=== PATIENT | male | born 1945 | race Caucasian/White ===

== ENCOUNTER 2017-11-16 19:27 | Emergency (ER) | payer SELFPAY ==
[~2017-11-16] VITALS: Ht 165.1 cm; Wt 77.6 kg
[2017-11-16 19:46] VITALS: Ht 165.1 cm; Wt 77.6 kg
[2017-11-16 21:16] LABS: BASOPHIL % 0.3 % (0-2); PLATELET COUNT 232 x10^3mcL (130-400); RED CELL DISTRIBUTION WIDTH 13.6 % (11.5-14.5)
[2017-11-16 21:28] LABS: CALCIUM 8.4 mg/dL (8.5-10.1); CARBON DIOXIDE 26.2 mmol/L (21-32); CHLORIDE SERUM 102 mmol/L (98-107); CREATININE SERUM 0.9 mg/dL (0.7-1.3); GLUCOSE SERUM 131 mg/dL (74-106); POTASSIUM SERUM 4.1 mmol/L (3.5-5.1); SODIUM SERUM 137 mmol/L (136-145)
[2017-11-16 21:33] LABS: ALBUMIN 3.5 g/dL (3.4-5.0); ALKALINE PHOSPHATASE 101 U/L (46-116); ALT/SGPT 14 U/L (16-63); AST/SGOT 21 U/L (15-37); BILIRUBIN TOTAL 0.6 mg/dL (0.20-1.00); TOTAL PROTEIN, SERUM 7.5 g/dL (6.4-8.2)
[2017-11-16 23:51] VITALS: BP 138/70
== END 2017-11-16 23:51 | disposition home or self-care (01) ==
LOC: ED 19:27
PROVIDERS: Emergency Medicine
DX: M54.5 Low back pain (principal); R10.9 Unspecified abdominal pain
CPT/HCPCS: J1885; J2405; J7040